=== PATIENT | female | born 1985 | race Caucasian/White ===

== ENCOUNTER 2018-08-28 18:34 | Emergency (ER) | payer SELFPAY ==
[~2018-08-28] VITALS: Ht 175.3 cm; Wt 104.3 kg
--- NOTE | 2018-08-28 18:37 | NUR ---
report given to Chasidy [facility] 4th floor
--- OUTSIDE RECORDS SUMMARY | 2018-08-28 18:39 | XMS REPORT | Summary of Care ---
Author Author Finn Sanchez M.D. Organization Unknown Address [address], [place] [id number] Phone Unavailable Care Team Providers Care Associate Application Developer Name Role Phone Finn Sanchez M.D. Unavailable Unavailable Verify PCP PP Unavailable Unavailable Unavailable Functional Status Functional Status Health Issues* Name Dates Details Functional status health issues are not documented Status: Cognitive Status Health Issues* Name Dates Details Cognitive status health issues are not documented Status: Problems Name Dates Details Cough (786.2, R05) Status: Active Chest congestion (786.9, R09.89) Status: Active Bronchitis (490, J40) Status: Active Medications Name Dates Details Cefdinir 300 MG Oral Capsule TAKE 1 CAPSULE EVERY 12 HOURS UNTIL GONE. Quantity: 20 Finn Sanchez M.D.* Started ActiveVentolin HFA 108 (90 Base) MCG/ACT Inhalation Aerosol Solution INHALE 2 PUFFS EVERY 4 HOURS NEEDED FOR COUGH AND WHEEZE. * Quantity: 1 Refills: 0 Finn Sanchez M.D.* Started Active8 GM Inhaler Allergies and Adverse Reactions Name Dates Details amoxicillin Status: Active Past Medical History Name Dates Details History of depression (V11.8, Z86.59) Status: Resolved Procedures Procedure Dates Details History of Section Procedures not documented Immunization Name Dates Details Immunizations not documented Family History Mother* Name Dates Details Family history of type 1 diabetes mellitus (V18.0, Z83.3) Status: Active Social History Name Dates Details Smoking Status* Current every day smoker Vital Signs Date Test Result Details 13:21 BP Systolic 134 mm[Hg] Status: BP Diastolic 80 mm[Hg] Status: Temperature 99 f Status: Heart Rate 107 /min Status: Height 69.5 in Status: Weight 339 lb Status: O2 SAT 96 % Status: Body Mass Index Calculated 49.34 kg/m2 Status: Body Surface Area Calculated 2.6 m2 Status: Results Date Description Value Details Results not documented Plan of Care Planned Observations* Name Dates Details Planned Goals not documented Goal Instructions * Instructions not documented Encounters Appointment; Finn Sanchez Encounter Diagnosis: Problem not documented On 13:15
--- OUTSIDE RECORDS SUMMARY | 2018-08-28 18:39 | XMS REPORT | Summary of Care ---
Author Author Laura Tabares, Finn Organization Unknown Address [address], [place] [id number] Phone Unavailable Care Team Providers Care Billing Clerk Name Role Phone Verify PCP PP Unavailable Functional Status Functional Status Health Issues* Name Dates Details Functional status health issues are not documented Status: Cognitive Status Health Issues* Name Dates Details Cognitive status health issues are not documented Status: Problems Name Dates Details Cough (786.2, R05) Status: Active Chest congestion (786.9, R09.89) Status: Active Medications Name Dates Details Medication not documented Allergies and Adverse Reactions Name Dates Details [...]
--- OUTSIDE RECORDS SUMMARY | 2018-08-28 18:39 | XMS REPORT | Summary of Care ---
Author Author Finn Sanchez M.D. Organization Unknown Address [address], [place] [id number] Phone Unavailable Care Team Providers Care Cut Off Man Name Role Phone Finn Sanchez M.D. Unavailable [...] Status: Active Bronchitis (490, J40) Status: Active Morbid obesity (278.01, E66.01) Status: Active Medications Name Dates Details Cefdinir [...] Dates Details Immunizations not documented Family History Unknown Family Member* Name Dates Details Family history of malignant neoplasm of breast (V16.3, Z80.3) Comments: Family History Status: Active Family history of hypertension (V17.49, Z82.49) Comments: Family History Status: Active Mother* Name Dates Details Family history of type 1 diabetes mellitus (V18.0, Z83.3) Status: Active Father* Name Dates Details Family history of type 2 diabetes mellitus (V18.0, Z83.3) Status: Active Social [...]
--- OUTSIDE RECORDS SUMMARY | 2018-08-28 18:40 | XMS REPORT | Continuity Of Care Document ---
Author Author [facility] Organization [facility] Address [address] [place] [address] Phone Care Team Providers Care Painter Helper Sign Name Role Phone FRANCIS CLIFFORD MD PP [phone] JULIANNA BEASLEY, RASHID Ocasio AT FELICITAS BEASLEY, GILDA Glez AD [phone] Results Lab Results Visit/Account #[id number] (September 24, 2016 5:42am - September 26, 2016 11:05am) Test Result Date/Time HEMOGLOBIN AND HEMATOCRIT HEMOGLOBIN(12.0-16.0 G/DL) 12.2 G/DL September 25, 2016 5:39am HEMATOCRIT(36.0-46.0 %) 35.7 % September 25, 2016 5:39am COMPLETE BLOOD COUNT WHITE BLOOD COUNT(4.0-11.0 10E3/UL) 11.1 10E3/UL September 24, 2016 10:55pm RED BLOOD COUNT(4.00-5.20 10E6/UL) 4.13 10E6/UL September 24, 2016 10:55pm HEMOGLOBIN(12.0-16.0 G/DL) 12.1 G/DL September 24, 2016 10:55pm HEMATOCRIT(36.0-46.0 %) 35.4 % September 24, 2016 10:55pm MEAN CORPUSCULAR VOLUME(82.0-100.0 FL) 85.7 FL September 24, 2016 10:55pm MEAN CORPUSCULAR HEMOGLOBIN(26.0-34.0 PG) 29.3 PG September 24, 2016 10:55pm MEAN CORPUSCULAR HGB CONC(31.5-36.5 G/DL) 34.2 G/DL September 24, 2016 10:55pm RED CELL DISTRIBUTION WIDTH(11.5-14.5 %) 13.3 % September 24, 2016 10:55pm 777-3: PLATELET COUNT(150-450 10E3/UL) 194 10E3/UL September 24, 2016 10:55pm MEAN PLATELET VOLUME(8.2-12.4 FL) 10.3 FL September 24, 2016 10:55pm NUCLEATED RBCS (AUTO)(0-0 %) 0 % September 24, 2016 10:55pm Bloodbank Results Visit/Account #[id number] (September 24, 2016 5:42am - September 26, 2016 11:05am) Test Result ABO/RH BLOOD TYPE B POSITIVE on September 24, 2016 6:10am ANTIBODY SCREEN ANTIBODY SCREEN NEGATIVE on September 24, 2016 6:10am Allergies and Adverse Reactions Allergies and Adverse Reactions Patient Unit Number: [id number] Agent Type Reaction Severity Status CLAVULANIC ACID Drug Allergy NAUSEA Unknown Active AMOXICILLIN Drug Allergy NAUSEA Unknown Active Problem List Problem List Visit/Account #[id number] (September 24, 2016 5:42am - September 26, 2016 11:05am) Active Problems: Code/Condition Comments Documented Start Date Documented Resolved Date Code(s) O34.211 MATERN CARE FOR LOW TRANSVERSE SCAR FROM PREV DEL September 26, 2016 F17.210 NICOTINE DEPENDENCE, CIGARETTES, UNCOMPLICATED September 26, 2016 O99.334 SMOKING (TOBACCO) COMPLICATING CHILDBIRTH September 26, 2016 O34.83 MATERNAL CARE FOR OTH ABNLT OF PELVIC ORGANS, THIRD TRI September 26, 2016 N83.292 OTHER OVARIAN CYST, LEFT SIDE September 26, 2016 Z37.0 SINGLE LIVE September 26, 2016 Z3A.39 39 WEEKS GESTATION OF September 26, 2016 Z30.2 ENCOUNTER FOR STERILIZATION September 26, 2016 Plan of Care Plan Of Care Visit/Account #[id number] (September 24, 2016 5:42am - September 26, 2016 11:05am) Patient Instructions Instructions [facility] DI Delivery Instructions [facility] To help guide you through your recovery, your doctor has made the following suggestions: Diet: 1. You may eat a regular diet unless you had diet restrictions before your delivery. 2. Eat a well-balanced diet. 3. Continue vitamins. 4. Drink at least two quarts of fluid daily. If , drink one extra quart. Activity: 1. Expect you energy level to be low the first few weeks after the baby s . 2. Listen to your body and pace yourself. Do not hesitate to nap when necessary. 3. Gradually increase your activity and exercise over time. Week 1: May ride in car and take walks, but rest as much as possible. You may do light housework as long as it does not involve straining or lifting. Avoid heavy lifting. You may climb stairs. Week 2: You may drive if it does not hurt when you push the car brakes. You may increase your activities as you feel like it. Do not lift more than 30 pounds. Week 3: You may continue to increase your activities as you feel like it. No exercises until your first post-operative check-up. Allow rest periods in the morning and afternoon. Week 4: Plan for you check-up. Physical Care: 1. Showers are preferred for the first 10 days to 2 weeks. If a shower is not available, a shallow tub bath may be taken. 2. No douches or use of tampons for 5-6 weeks. 3. If breasts become full and painful and you are not , you can apply a binder and ice packs. DO NOT EXPRESS MILK FROM BREASTS. 4. If hemorrhoids are swollen and painful, use tub bath, Nupercaine ointment (as labeled), Anusol suppositories (as labeled), and/or Witch mj pads. Vaginal Discharge: The amount of bleeding a woman has is quite variable. The important thing is that is should not ever become extremely heavy. You may bleed off and on, or have some element of discharge for several weeks after delivery. External cleansing of the vaginal area is all that is necessary. DO NOT DOUCHE, USE TAMPONS, OR HAVE INTERCOURSE UNTIL AFTER YOUR DOCTOR S VISIT. Contraception: Even if you are , it is possible that you could become if no means of control is used. If you should choose to resume intercourse before your check-up, it is advised that contraceptive foam and a condom be used. At the time of your check-up contraception can be discussed. Comfort Management: Pain medicine may be prescribed. Please follow the directions on the label. If pain medication is not prescribed, you may take Tylenol (acetaminophen) or Motrin (ibuprofen) as label indicates for pain. Bowel Habits: You may have a change in your bowel habits. If you become constipated it is best to try some dietary changes such as increasing the amount of fluid you drink and the amount of fiber (bulk) in your diet (bran flakes, prune juice, metamucil, senakot). If you continue to have constipation, you may try some geud-rhn-usycyve medications such as Colace or Milk of Magnesia. Please follow the directions on the label. Avoid milk and milk products as they can cause you to become constipated. Emotional Health: It is not unusual for women to have mood changes after delivery. Your family can help support you through these changes. If you have emotions that become overwhelming and do not resolve, notify your doctor. Call your doctor if you have: 1. A temperature above 100.4 degrees. 2. Unusual pain that does not respond to pain medication. 3. Excessive vaginal bleeding. (Any amount that is heavier that the heaviest day of your period, or saturating more than one pad per hour.) 4. Foul smelling vaginal discharge. 5. Redness or drainage around the wound. 6. Signs of urinary tract infection, such as hurting, burning, blood in the urine, or have a need to go frequently. 7. Severe vomiting, diarrhea, or constipation 8. You have severe chest discomfort or cough. 9. Feelings of depression. Follow-up care: 1. If abdominal ja are in place, at the time of dismissal make an appointment with your doctor s office to have them removed. 2. Make an appointment for a follow-up examination as instructed by your doctor. Questions: If you have any questions or concerns, please call your doctor s office. If you feel the need to contact the doctor after regular office hours, you can call the physician s exchange. If you are unable to contact your doctor and if you feel your condition is worsening, please go to the nearest emergency room. Vital Signs Vital Signs Visit/Account #[id number] (September 24, 2016 5:42am - September 26, 2016 11:05am) Sign First Result Last Result Code(s) Blood Pressure 120/ 66 mm[Hg] On September 24, 2016 8:56am 139/ 81 mm[Hg] On September 26, 2016 7:03am 8462-4 BP Diastolic 8480-6 BP Systolic Heart Rate/Pulse Pulse Rate (adult): 70 /min On September 24, 2016 8:56am Pulse Rate (adult): 93 /min On September 26, 2016 7:03am 8867-4 Heart Rate Respiratory Rate Respiratory Rate: 20 /min On September 24, 2016 8:56am Respiratory Rate: 20 /min On September 26, 2016 7:03am 9279-1 Respiratory Rate Temperature in Fahrenheit Temperature (Fahrenheit): 97.7 [degF] On September 24, 2016 8:56am Temperature (Fahrenheit): 98.4 [degF] On September 26, 2016 7:03am 8310-5 Body Temperature Functional Status Functional and Cognitive Status No Functional Status Data Medications Home Medications - Medications that the patient was taking prior to arrival at the hospital Visit/Account #[id number] (September 24, 2016 5:42am - September 26, 2016 11:05am) Medication Route Sig/Schedule Precondition/Indication Comments/Instructions Codes RITA (MULTIVIT/MIN/FOL AC/IRON/PREN) 1 TAB TAB Dose: 1 TAB ORAL DAILY RITA (MULTIVIT/MIN/FOL AC/IRON/PREN) NDC: 38300856170 TUMS(CALCIUM CARBONATE) 500 MG TAB Dose: 500 MG ORAL NEEDED INDIGESTION TUMS (CALCIUM CARBONATE) NDC: 30082009823 PRILOSEC(OMEPRAZOLE) 20 MG CAP Dose: 20 MG ORAL NEEDED Omeprazole 20 MG Delayed Release Oral Capsule (RxNorm): 393420 PRILOSEC (OMEPRAZOLE) NDC: 21221105265 Inpatient/Ordered Medications - Medications administered during hospital visit Visit/Account #[id number] (September 24, 2016 5:42am - September 26, 2016 11:05am) Medication Route Sig/Schedule Precondition/Indication Comments/Instructions Codes IV Medication Carriers: ANCEF 2 GM/50 ML(CEFAZOLIN SODIUM/NORMAL SALINE) 2 GM/50 ML INJECTION Dose: 50 ML INTRAVEN .MADYSON (Rate: 100 MLS/HR Duration: 30 MIN) Clinical Indication: ABX Preop Prophylaxis Rx Order Comments: Order filed UNV: Dose Warnings differ from mental health orderly Label Comments: Give 30-60 minutes prior to incision * Protect from light * Carriers: ANCEF 2 GM/50 ML (CEFAZOLIN SODIUM/NORMAL SALINE) NDC: 25801921842 IV Medication Carriers: LR(LACTATED RINGER'S) 1000 ML INJECTION Dose: 1000 ML INTRAVEN .Q8H (Rate: 125 MLS/HR Duration: 8 HR) Carriers: Calcium Chloride 0.0014 MEQ/ML / Potassium Chloride 0.004 MEQ/ML / Sodium Chloride 0.103 MEQ (RxNorm): 872098 LR (LACTATED RINGER'S) NDC: 44809092611 ORACIT SOLN(CITRIC ACID/SODIUM CITRATE) 30 ML SOLUTION Dose: 30 ML ORAL NOW Label Comments: Give immediately before transport to O.R. Citric Acid 128 MG/ML / sodium citrate 98 MG/ML Oral Solution [Oracit] (RxNorm): 205619 ORACIT SOLN (CITRIC ACID/SODIUM CITRATE) NDC: 79989021468 REGLAN INJ(METOCLOPRAMIDE HCL) 5 MG/ML INJECTION Dose: 2 ML INTRAVEN NOW Label Comments: Give immediately before transport to O.R. 2 ML Metoclopramide 5 MG/ML Injection (RxNorm): 476894 REGLAN INJ (METOCLOPRAMIDE HCL) NDC: 95898753177 IV Medication Carriers: LR(LACTATED RINGER'S) 1000 ML INJECTION Dose: 1000 ML INTRAVEN .Q1H1M (Rate: 999 MLS/HR Duration: 1 HR 1 MIN) Label Comments: infuse entire amount prior to surgery. If patient has preeclampsia, please discuss IV fluids with anesthesiologist first. Carriers: Calcium Chloride 0.0014 MEQ/ML / Potassium Chloride 0.004 MEQ/ML / Sodium Chloride 0.103 MEQ (RxNorm): 292316 LR (LACTATED RINGER'S) NDC: 30901221130 MOTRIN(IBUPROFEN) 800 MG TAB Dose: 800 MG ORAL EVERY 8 HOURS Label Comments: Discontinue use if ketorolac is started. Patient may refuse, but encourage use. Ibuprofen 800 MG Oral Tablet (RxNorm): 579384 MOTRIN (IBUPROFEN) NDC: 23150328902 TORADOL INJ(KETOROLAC TROMETHAMINE) 30 MG/ML INJECTION Dose: 1 ML INTRAVEN Q6H PRN Reason: PAIN Rx Order Comments: Order filed UNV: Allergies/Duplicates/Interactions differ from mental health orderly Label Comments: not relieved by po pain med or unable to tolerate po pain meds. 1 ML Ketorolac Tromethamine 30 MG/ML Injection (RxNorm): 1907716 TORADOL INJ (KETOROLAC TROMETHAMINE) NDC: 07621670003 PERCOCET 5/325(OxyCODONE/ACETAMINOPHEN) 1 TAB TAB Dose: 0 TAB ORAL Q4H PRN Reason: MODERATE TO SEVERE PAIN Label Comments: (pain level 4-10). Use if hydrocodone/acetaminophen is ineffective or patient intolerant . Do not exceed 4000 mg of total acetaminophen per 24 hours Special Dose Instructions: 1-2 TABS Acetaminophen 325 MG / Oxycodone Hydrochloride 5 MG Oral Tablet (RxNorm): 1094735 PERCOCET 5/325 (OxyCODONE/ACETAMINOPHEN) NDC: 78852068156 COLACE(DOCUSATE SODIUM) 100 MG CAP Dose: 100 MG ORAL TWICE A DAY Docusate Sodium 100 MG Oral Capsule (RxNorm): 2723656 COLACE (DOCUSATE SODIUM) NDC: 50097222799 FERROUS SULFATE 325 MG TAB Dose: 325 MG ORAL DAILY ferrous sulfate 325 MG Oral Tablet (RxNorm): 061506 (FERROUS SULFATE) NDC: 61771776619 MILK OF MAGNESIA 400 MG/5 ML(MAGNESIUM HYDROXIDE) 30 ML SUSPENSION Dose: 30 ML ORAL NEEDED PRN Reason: CONSTIPATION Magnesium Hydroxide 80 MG/ML Oral Suspension (RxNorm): 363952 MILK OF MAGNESIA 400 MG/5 ML (MAGNESIUM HYDROXIDE) NDC: 21729713913 IV Medication Carriers: PITOCIN 30 UNIT/500 ML PM(OXYTOCIN/RINGERS LACTATE) 30 UNIT/500 ML INJECTION Dose: 500 ML INTRAVEN .Q2H30M (Rate: 200 MLS/HR Duration: 2 HR 30 MIN) Rx Order Comments: Order filed UNV: Dose Warnings differ from mental health orderly Carriers: Oxytocin 0.06 UNT/ML Injectable Solution (RxNorm): 148892 PITOCIN 30 UNIT/500 ML PM (OXYTOCIN/RINGERS LACTATE) NDC: 39368713661 IV Medication Carriers: LR(LACTATED RINGER'S) 1000 ML INJECTION Dose: 1000 ML INTRAVEN .Q8H (Rate: 125 MLS/HR Duration: 8 HR) Carriers: Calcium Chloride 0.0014 MEQ/ML / Potassium Chloride 0.004 MEQ/ML / Sodium Chloride 0.103 MEQ (RxNorm): 813145 LR (LACTATED RINGER'S) NDC: 23803975466 MAALOX PLUS(AL HYDROX/MG HYDROX/SIMETH) 30 ML LIQUID Dose: 30 ML ORAL Q4H PRN Reason: INDIGESTION Aluminum Hydroxide 40 MG/ML / Magnesium Hydroxide 40 MG/ML / Simethicone 4 MG/ML Oral Suspen (RxNorm): 865502 MAALOX PLUS (AL HYDROX/MG HYDROX/SIMETH) NDC: 02787826451 Discharge Medications - Medications that patient should continue to take. Review with physician Visit/Account #[id number] (September 24, 2016 5:42am - September 26, 2016 11:05am) Medication Route Sig/Schedule Precondition/Indication Comments/Instructions Codes TUMS(CALCIUM CARBONATE) 500 MG TAB Dose: 500 MG ORAL NEEDED INDIGESTION TUMS (CALCIUM CARBONATE) NDC: 92513967582 PRILOSEC(OMEPRAZOLE) 20 MG CAP Dose: 20 MG ORAL NEEDED Omeprazole 20 MG Delayed Release Oral Capsule (RxNorm): 461215 PRILOSEC (OMEPRAZOLE) NDC: 15648212114 Motrin(IBUPROFEN) 800 MG TAB Dose: 800 MG ORAL EVERY 8 HOURS Ibuprofen 800 MG Oral Tablet (RxNorm): 771083 Motrin (IBUPROFEN) NDC: 96371911253 OXYCODONE HCL/ACETAMINOPHEN 5-325(OxyCODONE HCL/ACETAMINOPHEN) 1 EACH TABLET Dose: 1-2 TAB ORAL Q4H MODERATE TO SEVERE PAIN Acetaminophen 325 MG / Oxycodone Hydrochloride 5 MG Oral Tablet (RxNorm): 0889234 OXYCODONE HCL/ACETAMINOPHEN 5-325 (OxyCODONE HCL/ACETAMINOPHEN) NDC: 58056531058 History Of Encounters Encounters Visit/Account #[id number] (September 24, 2016 5:42am - September 26, 2016 11:05am) Account Status Physican Of Record Reason For Visit Visit Diagnosis Start Date/Time Stop Date/Time IN RASHID LEVINE MD REPEAT/39 Z34.83: ENCOUNTER FOR SUPRVSN OF NORMAL , THIRD TRIMESTER ICD10 Sep 24, 2016 5:42am Sep 26, 2016 11:05am History of Procedures Procedure List Visit/Account #[id number] (September 24, 2016 5:42am - September 26, 2016 11:05am) Code/Procedure Date 98G20T3: EXTRACTION OF POC, LOW CERVICAL, OPEN APPROACH September 24, 2016 8GI30KJ: EXCISION OF BILATERAL FALLOPIAN TUBES, OPEN APPROACH September 24, 2016 9UT49YC: EXCISION OF LEFT OVARY, OPEN APPROACH September 24, 2016 Discharge Instructions Discharge Instructions Visit/Account #[id number] (September 24, 2016 5:42am - September 26, 2016 11:05am) DISCHARGE INSTRUCTIONS Physician Documentation PROVIDER INSTRUCTIONS Discharge Diet As Tolerated Other Discharge Instructions - Continue vitamins - Follow your doctor's printed instructions WOUND/INCISION/CATHETER CARE Delivery/Incision Care Please follow these instructions: - If steri-strips present, they will fall off or can be removed in 5 to 7 days - Wash incision with soap and water daily. Keep clean and dry REASON TO CALL PROVIDER Notify Physician if: You have the following: - Heavy bleeding (more than one pad per hour) - Foul smelling discharge from vagina or incision - Passing of large clots - Severe pain or temperature above 100.4 degrees F. FOLLOW UP APPOINTMENTS Follow up appointment 2 weeks Social History Social History No Social History Data. Immunizations Immunizations Patient Unit Number: [id number] Immunizations No immunizations recorded.
[2018-08-28] MEDS ORDERED: methylPREDNISolone 125 MG (Solu-MEDROL) VIAL IM ONE (19:15)
--- NOTE | 2018-08-28 19:25 | ED Integumentary General ---
General Chief Complaint: Allergic Reaction Stated Complaint: POISON SUMAC RX/VOMITING/SWELLING Nursing Triage Note: TO TRIAGE WITH COMPLAINTS OF POSION SUMAC REACTION ALL OVER BODY BUT MOSTLY ON FACE. PT STATES SHE HAD A PREDNISONE SHOT YESTERDAY AND HAS BEEN TAKING BENADRYL AND IBUPROFEN. Source: patient Exam Limitations: no limitations History of Present Illness Date Seen by Provider: Aug 28, 2018 Time Seen by Provider: 19:06 Initial Comments Patient presents to ER by private conveyance with chief complaint that she got into some poison sumac or poison judah and went to urgent care yesterday got a shot of steroids but she's continuing to have quite a bit of rash today. She has a normal forced remedies her trunk and her face. She's never had it this bad before. She is using a topical cream as well as Benadryl. She does not have prednisone or steroids for today. Allergies and Home Medications Allergies Coded Allergies: No Known Drug Allergies (Unverified , 08/28/18) Patient Home Medication List Home Medication List Reviewed: Yes Review of Systems Review of Systems Constitutional: No chills, No diaphoresis EENTM: No ear pain, No eye pain Respiratory: No cough, No short of breath Cardiovascular: No chest pain, No edema Gastrointestinal: No abdominal pain, No nausea Past Frxqpup-Zclnfk-Yavzev Hx Patient Social History Alcohol Use: Denies Use Recreational Drug Use: No Smoking Status: Never a Smoker Recent Foreign Travel: No Contact w/Someone Who Travel: No Recent Infectious Disease Expo: No Past Medical History : No Last Menstrual Period: August 23, 2018 Physical Exam Vital Signs Vital Signs - First Documented 08/28/18 18:40 Temp 98.1 Pulse 103 Resp 16 B/P (MAP) 159/92 (114) Pulse Ox 96 O2 Delivery Room Air Capillary Refill : Less Than 3 Seconds General Appearance: WD/WN, no apparent distress HEENT: normal ENT inspection, pharynx normal Cardiovascular: normal peripheral pulses, regular rate, rhythm Respiratory: lungs clear, normal breath sounds, no respiratory distress, no accessory muscle use Skin: rash (contact dermatitis patches over all 4 extremities her neck and face.) Progress/Results/Core Measures Results/Orders My Orders Orders - JUSTINA CM Methylprednisolone Sod Succ (Solu-Medrol (08/28/18 19:15) Vital Signs/I&O 08/28/18 18:40 Temp 98.1 Pulse 103 Resp 16 B/P (MAP) 159/92 (114) Pulse Ox 96 O2 Delivery Room Air Blood Pressure Mean: 114 Progress Progress Note : Time: 19:20 Progress Note We'll give her another IM shot of 62.5 mg Solu-Medrol and put her on prednisone 60 mg daily for 3 days then 40 mg daily for 3 days then 20 mg daily for 3 days. Departure Impression Primary Impression: Contact dermatitis and eczema due to plant Disposition: HOME, SELF-CARE Condition: Stable Departure-Patient Inst. Decision time for Depature: 19:20 Referrals: NO,LOCAL PHYSICIAN (PCP/Family) Primary Care Physician Patient Instructions: Contact Dermatitis (DC) Add. Discharge Instructions: Keep your skin clean with a soft, gentle soap and water. Apply a emollient such as Nutraderm, CeraVe, Eucerin to the affected skin. Use Zyrtec or Claritin once or twice a day to control the itching. You can use Benadryl 1-2 tablets every 6 hours afterwards as needed for breakthrough itching. If your skin begins to look like getting infected you need to represent to a physician and consider treatment. gaming floor supervisor the prednisone and take 3 tablets daily starting tomorrow for 3 days Take 2 tablets prednisone daily for 3 days. Finally take one tablet daily for 3 days. All discharge instructions reviewed with patient and/or family. Voiced understanding. Scripts Prednisone (Prednisone) 20 Mg Tab 60 MG PO DAILY, #18 TAB 0 Refills 3 tablets daily x3 days 2 tablets daily x3 days 1 tablet daily x3 days Prov: JUSTINA CM 08/28/18 JUSTINA CM Aug 28, 2018 19:25
[2018-08-28] MEDS ORDERED: PRD20T PO (19:26)
[2018-08-28 19:52] VITALS: BP 145/90
== END 2018-08-28 19:54 | disposition home or self-care (01) ==
LOC: ER 18:36
DX: L23.7 Allergic contact dermatitis due to plants, except food (principal)
CPT/HCPCS: 96372; 99284

== ENCOUNTER 2018-09-04 13:08 | Emergency (ER) | payer SELFPAY ==
[~2018-09-04] VITALS: Ht 175.3 cm; Wt 145.1 kg
[~2018-09-04 13:08] MED LIST: PRD20T PO
--- OUTSIDE RECORDS SUMMARY | 2018-09-04 13:14 | XMS REPORT | Continuity of Care Document ---
Author Organization Unknown Address Unknown Allergies Active Description Code Type Severity Reaction Onset Reported/Identified Relationship to Patient Clinical Status Yes Amoxicillin [id number] Drug Allergy Moderate N/A Medications There is no data. Problems Date Dx Coded Attending Type Code Diagnosis Diagnosed By 10/15/2014 Finn Sanchez 782.2 Skin mass 10/15/2014 Finn Sanchez 278.00 Obesity, NOS Procedures Code [place] [address] Office/outpatient visit; established patient, level 3 10/15/2014 Results There is no data. Encounters ACCT No. Visit Date/Time Discharge Status Pt. Type Provider Facility Loc./Unit Complaint [id number] 08/27/2018 16:19:50 08/27/2018 23:59:59 [facility] Outpatient Yary Smiley [id number] 07/01/2017 10:57:57 07/01/2017 23:59:59 [facility] Outpatient Rachel Mccormack [id number] 10/15/2014 10:54:21 10/15/2014 11:21:42 [facility] Outpatient Finn Sanchez in [facility] [id number] 05/10/2014 15:07:00 KAREN Jules [facility]
[2018-09-04 14:43] LABS: BASOPHILS % (AUTO) 0 % (0-10); EOSINOPHILS # (AUTO) 0.5 10^3/uL (0.0-0.3); EOSINOPHILS % (AUTO) 4 % (0-10); HEMATOCRIT 44 % (35-52); HEMOGLOBIN 15.1 G/DL (11.5-16.0); LYMPHOCYTES # (AUTO) 1.5 X 10^3 (1.0-4.0); LYMPHOCYTES % (AUTO) 12 % (12-44); MEAN CORPUSCULAR HEMOGLOBIN 29 PG (25-34); MEAN CORPUSCULAR HGB CONC 34 G/DL (32-36); MEAN CORPUSCULAR VOLUME 84 FL (80-99); MONOCYTES % (AUTO) 8 % (0-12); NEUTROPHILS # (AUTO) 9.6 X 10^3 (1.8-7.8); NEUTROPHILS % (AUTO) 76 % (42-75); PLATELET COUNT 282 10^3/uL (130-400); RED CELL DISTRIBUTION WIDTH 13.4 % (10.0-14.5); WHITE BLOOD COUNT 12.6 10^3/uL (4.3-11.0)
[2018-09-04 14:58] LABS: FIBRIN DEGRADATION PRODUCTS 1.31 UG/ML (0.00-0.49)
[2018-09-04 15:03] LABS: ALANINE AMINOTRANSFERASE 17 U/L (0-55); ALBUMIN 3.8 GM/DL (3.2-4.5); ALKALINE PHOSPHATASE 56 U/L (40-136); BILIRUBIN,TOTAL 0.7 MG/DL (0.1-1.0); BUN/CREATININE RATIO 19; CALCIUM 8.8 MG/DL (8.5-10.1); CARBON DIOXIDE 25 MMOL/L (21-32); CHLORIDE 103 MMOL/L (98-107); CREATININE SERUM 0.86 MG/DL (0.60-1.30); GFR ESTIMATED > 60; GLUCOSE 123 MG/DL (70-105); POTASSIUM 3.2 MMOL/L (3.6-5.0); SODIUM 138 MMOL/L (135-145); TOTAL PROTEIN 6.6 GM/DL (6.4-8.2)
--- NOTE | 2018-09-04 16:21 | Diagnostic Imaging Report ---
EXAM: US venous upper extremity, lt. INDICATION: Left upper extremity pain and swelling. COMPARISON: None. TECHNIQUE: Duplex, aden-scale and color-flow imaging of the left upper extremity venous system was performed. FINDINGS: The left jugular, subclavian, axillary and brachial veins show no evidence of intraluminal thrombosis. The basilic and cephalic veins are patent. These vessels show normal compressibility, color flow and Doppler augmentation. IMPRESSION: Negative venous Doppler of the left upper extremity. No fluid collection is identified in the left antecubital fossa. Dictated by: Dictated on workstation # [id number]
[2018-09-04] MEDS ORDERED: SULF1TAB35 PO (16:28)
--- NOTE | 2018-09-04 16:28 | ED Integumentary General ---
General Chief Complaint: Skin/Wound Problems Stated Complaint: LEFT ARM SWELLING / RASH Nursing Triage Note: rash since last week, pt states left arm swelling and pain around elbow. Source: patient Exam Limitations: no limitations History of Present Illness Date Seen by Provider: Sep 04, 2018 Time Seen by Provider: 14:03 Initial Comments 33 year old female who presents to the ED with complains of redness and swelling to left ac area after injecting meth to the area for the past 3 days. Denies fevers. Location: extremities Associated Symptoms: swelling/mass/lumps Allergies and Home Medications Allergies Coded Allergies: amoxicillin (Unverified Allergy, Unknown, 09/04/18) clavulanic acid (Unverified Allergy, Unknown, 09/04/18) Home Medications Prednisone 20 Mg Tab, 60 MG PO DAILY 3 tablets daily x3 days 2 tablets daily x3 days 1 tablet daily x3 days Prescribed by: JUSTINA CM on 08/28/181925 Sulfamethoxazole/Trimethoprim 1 Each Tablet, 1 EACH PO BID Prescribed by: SOCO LOPEZ on 09/04/18 1628 Patient Home Medication List Home Medication List Reviewed: Yes Review of Systems Review of Systems Constitutional: see HPI; No chills, No fever Musculoskeletal: see HPI, joint pain (left elbow) All Other Systems Reviewed Negative Unless Noted: Yes Past Ubmniqb-Dfhzlv-Agfezl Hx Past Med/Social Hx: Reviewed Nursing Past Med/Soc Hx Patient Social History Recent Foreign Travel: No Contact w/Someone Who Travel: No Recent Infectious Disease Expo: No Recent Hopitalizations: No Family Medical History Reviewed Nursing Family Hx Physical Exam Vital Signs Vital Signs - First Documented 09/04/18 13:35 Temp 98.0 Pulse 81 Resp 18 B/P (MAP) 164/113 (130) Pulse Ox 98 O2 Delivery Room Air Capillary Refill : Less Than 3 Seconds General Appearance: WD/WN, no apparent distress Cardiovascular: normal peripheral pulses, regular rate, rhythm, no edema, no gallop, no JVD, no murmur Respiratory: chest non-tender, lungs clear, normal breath sounds, no respiratory distress, no accessory muscle use Extremities: inflammation, swelling, other Neurologic/Psychiatric: alert, normal mood/affect, oriented x 3 Skin: normal color, warm/dry Progress/Results/Core Measures Results/Orders Lab Results Laboratory Tests Test 09/04/18 14:28 09/04/18 15:16 Range/Units White Blood Count 12.6 H 4.3-11.0 10^3/uL Red Blood Count 5.20 4.35-5.85 10^6/uL Hemoglobin 15.1 11.5-16.0 G/DL Hematocrit 44 35-52 % Mean Corpuscular Volume 84 80-99 FL Mean Corpuscular Hemoglobin 29 25-34 PG Mean Corpuscular Hemoglobin Concent 34 32-36 G/DL Red Cell Distribution Width 13.4 10.0-14.5 % Platelet Count 282 130-400 10^3/uL Mean Platelet Volume 10.0 7.4-10.4 FL Neutrophils (%) (Auto) 76 H 42-75 % Lymphocytes (%) (Auto) 12 12-44 % Monocytes (%) (Auto) 8 0-12 % Eosinophils (%) (Auto) 4 0-10 % Basophils (%) (Auto) 0 0-10 % Neutrophils # (Auto) 9.6 H 1.8-7.8 X 10^3 Lymphocytes # (Auto) 1.5 1.0-4.0 X 10^3 Monocytes # (Auto) 1.0 0.0-1.0 X 10^3 Eosinophils # (Auto) 0.5 H 0.0-0.3 10^3/uL Basophils # (Auto) 0.0 0.0-0.1 10^3/uL Prothrombin Time 14.0 12.2-14.7 SEC INR Comment 1.0 0.8-1.4 Activated Partial Thromboplast Time 26 24-35 SEC D-Dimer 1.31 H 0.00-0.49 UG/ML Sodium Level 138 135-145 MMOL/L Potassium Level 3.2 L 3.6-5.0 MMOL/L Chloride Level 103 98-107 MMOL/L Carbon Dioxide Level 25 21-32 MMOL/L Anion Gap 10 5-14 MMOL/L Blood Urea Nitrogen 16 7-18 MG/DL Creatinine 0.86 0.60-1.30 MG/DL Estimat Glomerular Filtration Rate > 60 BUN/Creatinine Ratio 19 Glucose Level 123 H 70-105 MG/DL Calcium Level 8.8 8.5-10.1 MG/DL Corrected Calcium 9.0 8.5-10.1 MG/DL Total Bilirubin 0.7 0.1-1.0 MG/DL Aspartate Amino Transf (AST/SGOT) 12 5-34 U/L Alanine Aminotransferase (ALT/SGPT) 17 0-55 U/L Alkaline Phosphatase 56 40-136 U/L Total Protein 6.6 6.4-8.2 GM/DL Albumin 3.8 3.2-4.5 GM/DL Lactic Acid Level 0.96 0.50-2.00 MMOL/L Micro Results Microbiology 09/04/18 Blood Culture - Preliminary, Resulted No growth 09/04/18 Blood Culture - Preliminary, Resulted No growth My Orders Orders - SOCO LOPEZ Us Venous Upper Ext Lt (09/04/18 14:00) Comprehensive Metabolic Panel (09/04/18 14:00) Cbc With Automated Diff (09/04/18 14:00) Protime With Inr (09/04/18 14:00) Partial Thromboplastin Time (09/04/18 14:00) Fibrin Degradation Products (09/04/18 14:00) Ed Iv/Invasive Line Start (09/04/18 14:00) Blood Culture (09/04/18 14:00) Lactic Acid Analyzer (09/04/18 14:00) Vital Signs/I&O 09/04/18 09/04/18 13:35 16:34 Temp 98.0 98.0 Pulse 81 81 Resp 18 18 B/P (MAP) 164/113 (130) 165/98 (120) Pulse Ox 98 98 O2 Delivery Room Air Blood Pressure Mean: 130 Diagnostic Imaging Comments NAME: GRUPO BEATTY [facility] REC#: [id number] PT STATUS: DEP ER : 1985 PHYSICIAN: SOCO LOPEZ [facility] ADMIT DATE: 09/04/18/ER Signed Date of Exam: 09/04/18 US VENOUS UPPER EXT LT EXAM: US venous upper extremity, lt. INDICATION: Left upper extremity pain and swelling. COMPARISON: None. TECHNIQUE: Duplex, aden-scale and color-flow imaging of the left upper extremity venous system was performed. FINDINGS: The left jugular, subclavian, axillary and brachial veins show no evidence of intraluminal thrombosis. The basilic and cephalic veins are patent. These vessels show normal compressibility, color flow and Doppler augmentation. IMPRESSION: Negative venous Doppler of the left upper extremity. No fluid collection is identified in the left antecubital fossa. Dictated by: Dictated on workstation # [id number] Dict: 09/04/18 1617 Trans: 09/04/181700 Interpreted by: VIANEY FONTENOT MD Electronically signed by: VIANEY FONTENOT MD 09/04/181700 Departure Impression Primary Impression: Cellulitis Disposition: 01 HOME, SELF-CARE Condition: Stable/Unchanged Departure-Patient Inst. Decision time for Depature: 16:27 Referrals: NO,LOCAL PHYSICIAN (PCP/Family) Primary Care Physician Patient Instructions: Cellulitis (Skin Infection), Adult (DC) Add. Discharge Instructions: Take medication as directed. You may alternate ice and heat to the sore areas at 20 minute intervals. Tylenol and ibuprofen as directed by the bottle for pain relief. Follow-up with her primary care provider within 1 week for recheck. Return back to emergency room for worsening symptoms or concerns as needed. All discharge instructions reviewed with patient and/or family. Voiced understanding. Scripts Sulfamethoxazole/Trimethoprim (Bactrim Ds Tablet) 1 Each Tablet 1 EACH PO BID for 7 Days, #14 TAB Prov: SOCO LOPEZ 09/04/18 Work/School Note: Work Release Form Date Seen in the Emergency Department: Sep 04, 2018 Return to Work: Sep 05, 2018 Restrictions: No Restrictions SOCO LOPEZ Sep 04, 2018 16:28
[2018-09-04 16:34] VITALS: BP 165/98
== END 2018-09-04 16:34 | disposition home or self-care (01) ==
LOC: EDUNIT# 13:08 → ER 13:10
DX: L03.114 Cellulitis of left upper limb (principal); F15.10 Other stimulant abuse, uncomplicated; Z88.1 Allergy status to other antibiotic agents; Z88.8 Allergy status to other drugs, medicaments and biological substances; Z79.52 Long term (current) use of systemic steroids
CPT/HCPCS: 36415; 80053; 83605; 85025; 85379; 85610; 85730; 87040